=== PATIENT | female | born 1975 | race Caucasian/White ===

== ENCOUNTER 2024-02-05 18:31 | Inpatient (IN) | payer MEDICAID ==
[~2024-02-05] VITALS: Ht 172.7 cm; Wt 109.0 kg
[~2024-02-05 18:31] MED LIST: rocuronium 10mg/ml inj IV ONE
[2024-02-05] MEDS: naloxone 2mg/2ml inj IV ONE (18:51)
[2024-02-05] MEDS: naloxone 2mg/2ml inj IV STA ×2 (18:51→19:27)
[2024-02-05] MEDS: normal saline 1000ML IV soln IVB ONE (18:54)
[2024-02-05 19:16] LABS: BASOPHILS % (AUTO) 0.4 % (0-1); EOSINOPHILS # (AUTO) 0.2 X10'3 (0-0.9); EOSINOPHILS % (AUTO) 1.2 % (0-6); HEMATOCRIT 42.5 % (35.0-45.0); HEMOGLOBIN 14.1 g/dl (12.0-16.0); LYMPHOCYTES # (AUTO) 3.4 X10'3 (1.1-4.8); LYMPHOCYTES % (AUTO) 28.2 % (21-51); MEAN CORPUSCULAR HEMOGLOBIN 30.3 PG (27.0-31.0); MEAN CORPUSCULAR HGB CONC 33.2 g/dL (33.0-36.5); MEAN CORPUSCULAR VOLUME 91.5 FL (78-98); MEAN PLATELET VOLUME 9.3 FL (7.4-10.4); MONOCYTES # (AUTO) 0.7 X10'3 (0-0.9); MONOCYTES % (AUTO) 6.2 % (2-12); NEUTROPHILS # (AUTO) 7.7 X10'3 (1.8-7.7); PLATELET COUNT 217 X10'3 (140-440); RED BLOOD COUNT 4.64 X10'6 (4.20-5.60); RED CELL DISTRIBUTION WIDTH 14.2 % (11.5-14.5); WHITE BLOOD COUNT 12.1 X10'3 (4.5-11.0)
[2024-02-05] MEDS: sodium bicarbonate (8.4%) 1 mEq/ml syringe IV ONE (19:19)
[2024-02-05 19:21] LABS: ABG BASE EXCESS -4.3 mmol/L (-2.0-2.0); ABG HCO3 19.5 mmol/L (22.0-26.0); ABG OXYGEN SATURATION 98.3 % (94-97); ABG PCO2 (T) 31.8 mmHg (32.0-45.0); ABG PH (T) 7.404 (7.350-7.450); ABG PO2 (T) 110.8 mmHg (75.0-100.0); ALLEN'S TEST Modified; FCOHb 0.5 % (0.0-3.9); FHHb 1.7 % (0.0-5.0); FLOW 2 L/min; FMetHb 0.3 % (0.0-1.5); FO2Hb 97.5 % (94-97); MODE NASAL CANNULA; PATIENT TEMPERATURE 36.8
[2024-02-05] MEDS: magnesium 2GM in 50ml NS 50 ML IV ONE (19:24)
[2024-02-05 19:56] LABS: ALBUMIN 3.6 G/DL (3.4-5.0); ANION GAP 16 (8-16); BLOOD UREA NITROGEN 10 MG/DL (7-18); BUN/CREATININE RATIO 11.1 (10.0-20.0); CALCIUM 8.7 MG/DL (8.5-10.1); CHLORIDE 99 MMOL/L (99-107); ETHANOL 242 MG/DL (<10); GLUCOSE 104 MG/DL (70-104); SALICYLATE 0.2 MG/DL (4.0-20.0); SODIUM 135 MMOL/L (135-145); TOTAL CARBON DIOXIDE 20.3 MMOL/L (24-32); eCRCL 76 ML/MIN; eGFR 67 ML/MIN
[2024-02-05 19:58] LABS: CREATINE KINASE MB < 0.5 ng/ml (0.3-3.6)
[2024-02-05 20:01] LABS: ACETAMINOPHEN < 2.0 UG/ML (10-30)
[2024-02-05 20:04] LABS: ALANINE AMINOTRANSFERASE 17 U/L (12-78); ALBUMIN 3.4 G/DL (3.4-5.0); ALBUMIN/GLOBULIN RATIO 0.9 (1.1-1.5); ALKALINE PHOSPHATASE 83 IU/L (46-116); ASPARTATE AMINO TRANSFERASE 14 U/L (10-37); BILIRUBIN,DIRECT 0.2 MG/DL (0-0.3); BILIRUBIN,TOTAL 0.9 MG/DL (0.1-1.0); TOTAL PROTEIN 7.4 G/DL (6.4-8.2)
[2024-02-05 20:29] LABS: BILIRUBIN,URINE NEGATIVE (Neg); CLARITY,URINE SLIGHTLY CLOUDY (Clear); COLOR,URINE STRAW (Yellow); GLUCOSE, URINE NEGATIVE (Neg); KETONES,URINE 15 mg/dl (Neg); LEUKOCYTE ESTERASE ,URINE NEGATIVE (Neg); NITRITES, URINE NEGATIVE (Neg); OCCULT BLOOD,URINE NEGATIVE (Neg); PH,URINE 5.5 (4.8-8.0); PROTEIN,URINE NEGATIVE (Neg); UROBILINOGEN,URINE 0.2 E.U/dL (0.2-1.0)
[2024-02-05 20:40] LABS: UA COLLECTION TYPE FOLEY CATH
[2024-02-05 20:41] LABS: MUCUS STRANDS MANY /LPF (Neg); SQUAMOUS EPITHELIAL CELL,UR MANY /LPF (FEW)
[2024-02-05 20:42] LABS: BACTERIA,URINE 2+ /HPF (Neg); RBC,URINE NONE SEEN /HPF (0-2)
[2024-02-05 20:57] LABS: URINE AMPHETAMINE SCREEN NEGATIVE (Neg); URINE BARBITUATE SCREEN NEGATIVE (Neg); URINE BENZODIAZEPINES SCREEN NEGATIVE (Neg); URINE CANNABINOID SCREEN NEGATIVE (Neg); URINE COCAINE SCREEN NEGATIVE (Neg); URINE METHADONE SCREEN NEGATIVE (Neg); URINE PHENCYCLIDINE SCREEN NEGATIVE (Neg)
[2024-02-05 21:01] VITALS: BP 123/74; PULSE 111; RESP 16; O2SAT 98
[2024-02-05 21:06] LABS: VALPROATE 232 UG/ML (50-100)
[2024-02-05] MEDS: propofol 1000mg/100ml bottle 100 ML IV SCH ×2 (21:08→21:10)
[2024-02-05] MEDS: succinylcholine 20mg/ml inj IV ONE (21:09)
[2024-02-05] MEDS: FENTANYL 1000MCG/NS 100 ML BAG /PF IV SCH (21:31)
[2024-02-05 21:32] LABS: ABG HCO3 18.9 mmol/L (22.0-26.0); ABG OXYGEN SATURATION 98.3 % (94-97); ABG PCO2 (T) 34.2 mmHg (32.0-45.0); ABG PH (T) 7.356 (7.350-7.450); ABG PO2 (T) 113.6 mmHg (75.0-100.0); ALLEN'S TEST Modified; FCOHb 0.4 % (0.0-3.9); FHHb 1.7 % (0.0-5.0); FMetHb 0.3 % (0.0-1.5); FO2Hb 97.6 % (94-97); MODE CMV PRVC IT 0.9; PATIENT TEMPERATURE 36.2; PEEP 5 cm H2O; RESPIRATORY RATE 16 b/min; TIDAL VOLUME 450 mL; TOTAL HEMOGLOBIN 13.8 G/dl (12.0-16.0)
[2024-02-05] MEDS: potassium Cl 20mEq/100mL bag 100 ML IV ONE (21:40)
[2024-02-05] MEDS ORDERED: acetaminophen 325mg tablet PO PRN ×2 (22:35)
[2024-02-05 22:50] LABS: TRIGLYCERIDES 93 MG/DL (20-135)
[2024-02-05 22:59] VITALS: BP 119/70; PULSE 81; RESP 17; O2SAT 100
[2024-02-06] VITALS (23 sets, daily range): BP systolic 100–132; BP diastolic 55–78; PULSE 65–99; RESP 13–21; O2SAT 95–99
[2024-02-06 01:47] LABS: ALANINE AMINOTRANSFERASE 14 U/L (12-78); ALBUMIN/GLOBULIN RATIO 0.8 (1.1-1.5); ALKALINE PHOSPHATASE 78 IU/L (46-116); ANION GAP 11 (8-16); ASPARTATE AMINO TRANSFERASE 12 U/L (10-37); BILIRUBIN,TOTAL 0.6 MG/DL (0.1-1.0); BLOOD UREA NITROGEN 7 MG/DL (7-18); BUN/CREATININE RATIO 8.9 (10.0-20.0); CALCIUM 7.3 MG/DL (8.5-10.1); CHLORIDE 104 MMOL/L (99-107); CREATININE 0.79 MG/DL (0.40-0.90); GLUCOSE 99 MG/DL (70-104); POTASSIUM 3.7 MMOL/L (3.5-5.1); SODIUM 138 MMOL/L (135-145); TOTAL CARBON DIOXIDE 22.9 MMOL/L (24-32); TOTAL PROTEIN 6.8 G/DL (6.4-8.2); eCRCL 87 ML/MIN; eGFR 77 ML/MIN
[2024-02-06 01:48] LABS: BILIRUBIN,DIRECT 0.2 MG/DL (0-0.3); MAGNESIUM 2.4 MG/DL (1.5-2.4); VALPROATE 127 UG/ML (50-100)
[2024-02-06 03:17] LABS: ABG BASE EXCESS -2.7 mmol/L (-2.0-2.0); ABG HCO3 20.9 mmol/L (22.0-26.0); ABG OXYGEN SATURATION 97.9 % (94-97); ABG PCO2 (T) 32.9 mmHg (32.0-45.0); ALLEN'S TEST Modified; FCOHb 0.5 % (0.0-3.9); FHHb 2.1 % (0.0-5.0); FMetHb 0.3 % (0.0-1.5); FO2Hb 97.1 % (94-97); MODE VENT - PRVC; PEEP 5 cm H2O; RESPIRATORY RATE 16 b/min; TIDAL VOLUME 450 mL; TOTAL HEMOGLOBIN 13.7 G/dl (12.0-16.0)
[2024-02-06] MEDS: ondansetron/PF 4mg/2ml inj IV PRN (03:35)
[2024-02-06 05:47] LABS: BASOPHILS % (AUTO) 0.2 % (0-1); EOSINOPHILS % (AUTO) 0.1 % (0-6); HEMATOCRIT 39.6 % (35.0-45.0); HEMOGLOBIN 13.2 g/dl (12.0-16.0); LYMPHOCYTES # (AUTO) 1.8 X10'3 (1.1-4.8); MEAN CORPUSCULAR HEMOGLOBIN 30.7 PG (27.0-31.0); MEAN CORPUSCULAR HGB CONC 33.3 g/dL (33.0-36.5); MEAN PLATELET VOLUME 9.5 FL (7.4-10.4); MONOCYTES # (AUTO) 0.6 X10'3 (0-0.9); MONOCYTES % (AUTO) 5.6 % (2-12); NEUTROPHILS # (AUTO) 8.9 X10'3 (1.8-7.7); NEUTROPHILS % (AUTO) 78.1 % (42-75); PLATELET COUNT 156 X10'3 (140-440); RED BLOOD COUNT 4.31 X10'6 (4.20-5.60); RED CELL DISTRIBUTION WIDTH 14.4 % (11.5-14.5); WHITE BLOOD COUNT 11.3 X10'3 (4.5-11.0)
[2024-02-06 06:09] LABS: ALANINE AMINOTRANSFERASE 13 U/L (12-78); ALBUMIN 3.1 G/DL (3.4-5.0); ALBUMIN/GLOBULIN RATIO 0.8 (1.1-1.5); ALKALINE PHOSPHATASE 82 IU/L (46-116); ANION GAP 13 (8-16); ASPARTATE AMINO TRANSFERASE 16 U/L (10-37); BILIRUBIN,DIRECT 0.1 MG/DL (0-0.3); BILIRUBIN,TOTAL 0.5 MG/DL (0.1-1.0); BLOOD UREA NITROGEN 6 MG/DL (7-18); BUN/CREATININE RATIO 8.7 (10.0-20.0); CALCIUM 7.7 MG/DL (8.5-10.1); CHLORIDE 104 MMOL/L (99-107); CREATININE 0.69 MG/DL (0.40-0.90); GLUCOSE 87 MG/DL (70-104); POTASSIUM 4.2 MMOL/L (3.5-5.1); SODIUM 138 MMOL/L (135-145); TOTAL CARBON DIOXIDE 20.9 MMOL/L (24-32); TOTAL PROTEIN 7.1 G/DL (6.4-8.2); TRIGLYCERIDES 135 MG/DL (20-135); VALPROATE 110 UG/ML (50-100); eCRCL 99 ML/MIN; eGFR 90 ML/MIN
[2024-02-06 09:46] LABS: ALANINE AMINOTRANSFERASE 18 U/L (12-78); ALBUMIN 3.1 G/DL (3.4-5.0); ALBUMIN/GLOBULIN RATIO 0.8 (1.1-1.5); ALKALINE PHOSPHATASE 85 IU/L (46-116); ANION GAP 12 (8-16); ASPARTATE AMINO TRANSFERASE 13 U/L (10-37); BILIRUBIN,DIRECT 0.3 MG/DL (0-0.3); BILIRUBIN,TOTAL 0.8 MG/DL (0.1-1.0); BLOOD UREA NITROGEN 5 MG/DL (7-18); BUN/CREATININE RATIO 6.6 (10.0-20.0); CHLORIDE 104 MMOL/L (99-107); CREATININE 0.76 MG/DL (0.40-0.90); GLUCOSE 92 MG/DL (70-104); POTASSIUM 3.5 MMOL/L (3.5-5.1); SODIUM 138 MMOL/L (135-145); TOTAL CARBON DIOXIDE 22.1 MMOL/L (24-32); TOTAL PROTEIN 7.2 G/DL (6.4-8.2); VALPROATE 81 UG/ML (50-100); eCRCL 90 ML/MIN; eGFR 81 ML/MIN
[2024-02-06] MEDS: pantoprazole 40mg Tablet.DR PO SCH (09:58)
[2024-02-06] MEDS ORDERED: MELA10TA3 PO (11:01)
[2024-02-06] MEDS ORDERED: DOCU-150 PO (11:03)
[2024-02-06] MEDS ORDERED: FERR325T28 PO (11:05)
[2024-02-06] MEDS: Chloraseptic (Phenol) Spray 177ml MM PRN (14:58)
[2024-02-07 06:06] LABS: BASOPHILS % (AUTO) 0.5 % (0-1); EOSINOPHILS # (AUTO) 0.1 X10'3 (0-0.9); EOSINOPHILS % (AUTO) 2.2 % (0-6); HEMATOCRIT 37.5 % (35.0-45.0); HEMOGLOBIN 12.5 g/dl (12.0-16.0); LYMPHOCYTES # (AUTO) 1.4 X10'3 (1.1-4.8); LYMPHOCYTES % (AUTO) 23.4 % (21-51); MEAN CORPUSCULAR HEMOGLOBIN 30.7 PG (27.0-31.0); MEAN CORPUSCULAR HGB CONC 33.4 g/dL (33.0-36.5); MEAN PLATELET VOLUME 9.4 FL (7.4-10.4); MONOCYTES # (AUTO) 0.5 X10'3 (0-0.9); MONOCYTES % (AUTO) 7.9 % (2-12); PLATELET COUNT 140 X10'3 (140-440); RED BLOOD COUNT 4.08 X10'6 (4.20-5.60); RED CELL DISTRIBUTION WIDTH 13.8 % (11.5-14.5); WHITE BLOOD COUNT 6.1 X10'3 (4.5-11.0)
[2024-02-07 06:33] LABS: ALBUMIN 2.8 G/DL (3.4-5.0); ANION GAP 6 (8-16); BLOOD UREA NITROGEN 9 MG/DL (7-18); BUN/CREATININE RATIO 12.7 (10.0-20.0); CALCIUM 8.3 MG/DL (8.5-10.1); CHLORIDE 103 MMOL/L (99-107); CREATININE 0.71 MG/DL (0.40-0.90); GLUCOSE 86 MG/DL (70-104); MAGNESIUM 2.4 MG/DL (1.5-2.4); PHOSPHORUS 3.2 MG/DL (2.3-4.5); POTASSIUM 3.2 MMOL/L (3.5-5.1); SODIUM 136 MMOL/L (135-145); TOTAL CARBON DIOXIDE 26.8 MMOL/L (24-32); eCRCL 97 ML/MIN; eGFR 87 ML/MIN
[2024-02-07 06:49] VITALS: BP 116/66; PULSE 73; RESP 18; TEMP 97.4; O2SAT 98
[2024-02-07 08:00] VITALS: RESP 16
[2024-02-07] MEDS ORDERED: potassium Cl 20 mEq SR tablet PO PRN (14:25)
[2024-02-07] MEDS ORDERED: magnesium 2GM in 50ml NS 50 ML IV PRN (14:25)
[2024-02-07] MEDS ORDERED: potassium Cl 40MEQ/1/2NS 520ml 520 ML IV PRN (14:25)
[2024-02-07] MEDS ORDERED: magnesium Cl slow-release 64mg tablet PO PRN (14:25)
[2024-02-07] MEDS ORDERED: magnesium 4gm in 100ml NS 100 ML IV PRN (14:25)
[2024-02-07] MEDS: potassium Cl 20 mEq SR tablet PO PRN (15:09)
[2024-02-07 18:00] VITALS: BP 136/81; PULSE 84; RESP 16; TEMP 97.3; O2SAT 97
[2024-02-07 20:00] VITALS: RESP 20; O2SAT 98
[2024-02-07] MEDS: K and/or MAG REPLACEMENT MC SCH (20:00)
[2024-02-07 22:00] VITALS: BP 115/65; PULSE 67; RESP 20; TEMP 96.5; O2SAT 95
[2024-02-08 05:55] LABS: BASOPHILS % (AUTO) 0.3 % (0-1); EOSINOPHILS # (AUTO) 0.2 X10'3 (0-0.9); EOSINOPHILS % (AUTO) 3.7 % (0-6); HEMATOCRIT 36.6 % (35.0-45.0); HEMOGLOBIN 12.4 g/dl (12.0-16.0); LYMPHOCYTES # (AUTO) 1.5 X10'3 (1.1-4.8); LYMPHOCYTES % (AUTO) 27.2 % (21-51); MEAN CORPUSCULAR HGB CONC 33.9 g/dL (33.0-36.5); MEAN CORPUSCULAR VOLUME 91.6 FL (78-98); MEAN PLATELET VOLUME 9.8 FL (7.4-10.4); MONOCYTES # (AUTO) 0.4 X10'3 (0-0.9); MONOCYTES % (AUTO) 7.2 % (2-12); NEUTROPHILS # (AUTO) 3.4 X10'3 (1.8-7.7); NEUTROPHILS % (AUTO) 61.6 % (42-75); PLATELET COUNT 129 X10'3 (140-440); RED CELL DISTRIBUTION WIDTH 13.8 % (11.5-14.5); WHITE BLOOD COUNT 5.5 X10'3 (4.5-11.0)
[2024-02-08 06:16] LABS: ALBUMIN 2.8 G/DL (3.4-5.0); ANION GAP 6 (8-16); BLOOD UREA NITROGEN 10 MG/DL (7-18); BUN/CREATININE RATIO 14.9 (10.0-20.0); CALCIUM 8.2 MG/DL (8.5-10.1); CHLORIDE 105 MMOL/L (99-107); CREATININE 0.67 MG/DL (0.40-0.90); GLUCOSE 88 MG/DL (70-104); MAGNESIUM 2.2 MG/DL (1.5-2.4); PHOSPHORUS 3.6 MG/DL (2.3-4.5); POTASSIUM 3.8 MMOL/L (3.5-5.1); SODIUM 138 MMOL/L (135-145); TOTAL CARBON DIOXIDE 26.7 MMOL/L (24-32); eCRCL 104 ML/MIN; eGFR > 90 ML/MIN
[2024-02-08 06:40] VITALS: BP 117/75; PULSE 65; RESP 18; TEMP 97.6; O2SAT 98
[2024-02-08 08:00] VITALS: RESP 16
[2024-02-08 08:35] LABS: TRIGLYCERIDES 65 MG/DL (20-135)
[2024-02-08 10:55] VITALS: BP 115/68; PULSE 81; RESP 18; TEMP 97.7; O2SAT 95
[2024-02-09 05:51] LABS: HBSAG SCREEN Negative (Negative); HEP A AB, IGM Negative (Negative); HEP B CORE AB, IGM Negative (Negative); HEPATITIS C VIRUS ANTIBODY Non Reactive (Non Reactive)
== END 2024-02-08 17:50 | disposition home or self-care (01) | DRG 817 ==
LOC: ER 18:31 → EDBD 22:39 → ED HOLD 22:39 → CICU 2S 23:45 → SUR 3N 02-06 14:43
PROVIDERS: ADMIT Internal Medicine Critical Care Medicine; ATTEND Internal Medicine Critical Care Medicine
PROC: 5A1935Z Respiratory Ventilation, Less than 24 Consecutive Hours (ICD-10-PCS; principal; 2024-02-05)
PROC: 0BH17EZ Insertion of Endotracheal Airway into Trachea, Via Natural or Artificial Opening (ICD-10-PCS; 2024-02-05)
DX: T42.6X2A Poisoning by other antiepileptic and sedative-hypnotic drugs, intentional self-harm, initial encounter (principal); J96.01 Acute respiratory failure with hypoxia; G93.40 Encephalopathy, unspecified; T51.0X1A Toxic effect of ethanol, accidental (unintentional), initial encounter; Y90.8 Blood alcohol level of 240 mg/100 ml or more; F19.90 Other psychoactive substance use, unspecified, uncomplicated; E87.20 Acidosis, unspecified; F10.10 Alcohol abuse, uncomplicated; F43.0 Acute stress reaction; Z63.4 Disappearance and death of family member; Y92.89 Other specified places as the place of occurrence of the external cause
CPT/HCPCS: 36415; 36600; 70450; 71045; 80048; 80053; 80074; 80076; 80164; 80305; 80320; 80329; 81001; 82140; 82248; 82553; 82803; 82948; 83605; 83735; 84100; 84478; 84484; 85018; 85025; 87040; 87070; 87077; 87081; 87088; 87186; 93005; 94002; 94640; 94760; 94799; 96365; 96375; 99291; A4615; A6213; C1758; G0378; J0330; J2310; J2405; J2704; J3010; J3475; J3480; J3490; J7030